=== PATIENT | female | born 1955 | race Two or more races ===

== ENCOUNTER 2017-10-14 10:04 | Outpatient (CLI) | payer OTHER ==
[~2017-10-14 10:04] MED LIST: LEVOXYL50 MCG PO; NORFLEX100 MG PO; TORADOL10 MG PO; TRAMADOL HCL-AP1 TAB PO; ZOLOFT25 MG PO
== END 2017-10-14 15:00 | disposition home or self-care (01) ==
LOC: SONOGRAMA 10:04
DX: E04.2 Nontoxic multinodular goiter (principal)

== ENCOUNTER → 2017-10-20 | Outpatient (CLI) | payer OTHER | END | disposition home or self-care (01) | LOC: MAMO-SONO 09:44 | DX: Z12.31 Encounter for screening mammogram for malignant neoplasm of breast (principal); N60.11 Diffuse cystic mastopathy of right breast ==

== ENCOUNTER 2018-10-27 10:17 | Outpatient (CLI) | payer OTHER | END 2018-10-27 10:50 | disposition home or self-care (01) | LOC: MAMO-SONO 10:17 | DX: Z12.31 Encounter for screening mammogram for malignant neoplasm of breast (principal); Z87.898 Personal history of other specified conditions; N60.11 Diffuse cystic mastopathy of right breast; E04.2 Nontoxic multinodular goiter ==

== ENCOUNTER 2020-05-05 09:33 | Outpatient (CLI) | payer OTHER | END 2020-05-05 09:54 | disposition home or self-care (01) | LOC: MAMO-SONO 09:33 | PROVIDERS: ATTEND Obstetrics & Gynecology | DX: N60.11 Diffuse cystic mastopathy of right breast (principal) ==

== ENCOUNTER 2021-05-16 10:15 | Outpatient (CLI) | payer OTHER | END 2021-05-16 10:16 | disposition home or self-care (01) | LOC: MAMO-SONO 10:15 | PROVIDERS: ATTEND Obstetrics & Gynecology | DX: N60.11 Diffuse cystic mastopathy of right breast (principal) ==

== ENCOUNTER 2021-06-06 09:13 | Outpatient (CLI) | payer OTHER | END 2021-06-06 09:19 | disposition home or self-care (01) | LOC: TOM 09:13 | PROVIDERS: ATTEND Internal Medicine Gastroenterology | DX: K56.50 Intestinal adhesions [bands], unspecified as to partial versus complete obstruction (principal); Z12.11 Encounter for screening for malignant neoplasm of colon; R10.30 Lower abdominal pain, unspecified ==

== ENCOUNTER 2022-04-24 10:20 | Outpatient (CLI) | payer OTHER | END 2022-04-24 10:24 | disposition home or self-care (01) | LOC: SONOGRAMA 10:20 | PROVIDERS: ATTEND Internal Medicine | DX: E04.2 Nontoxic multinodular goiter (principal) ==